=== PATIENT | male | born 1945 | race Caucasian/White ===

== ENCOUNTER 2019-11-20 20:35 | Inpatient (IN) ==
[2019-11-20 21:47] LABS: ABS Basophils 0.1 10^3/ul (0-0.2); ABS Monocytes 1.5 10^3/ul (0-0.8); ABS Neutrophils 17.9 10^3/ul (1.5-7.7); Hematocrit 41 % (42-52); Hemoglobin 14.1 g/dL (14.0-18.0); Mean Corpuscular HGB Conc 34 g/dL (31-36); Mean Corpuscular Hemoglobin 32 pg (27-31); Mean Corpuscular Volume 93 fL (80-94); Mean Platelet Volume 7.6 fL (7.4-10.4); Platelet Count 206 10^3/uL (150-450); Red Blood Count 4.44 10^6 /uL (4.18-5.48); Red Cell Distribution Width 15 % (10-15); White Blood Count 20.5 10^3/uL (3.5-10.8)
[2019-11-20 22:00] LABS: Urine Appearance Turbid; Urine Bilirubin Negative (Negative); Urine Blood 3+ (Negative); Urine Color Yellow; Urine Glucose Negative (Negative); Urine Ketones Negative (Negative); Urine Nitrite Negative (Negative); Urine Protein 2+(100 mg/dL) (Negative); Urine Urobilinogen Negative (Negative)
[2019-11-20 22:01] LABS: Albumin 3.8 g/dL (3.2-5.2); Albumin/Globulin Ratio 0.9 (1-3); BUN/Creatinine Ratio 12.7 (8-20); C Reactive Protein 50.16 mg/L (<8.01); Calcium 9.8 mg/dL (8.6-10.3); EGFR African American 35.5 (>60); EGFR Non-African American 29.3 (>60); Globulin 4.2 g/dL (2-4); Total Bilirubin 1.1 mg/dL (0.2-1.0)
[2019-11-20 22:02] LABS: Potassium 5.2 mmol/L (3.5-5.0)
[2019-11-20 22:17] LABS: Urine Bacteria Absent (Absent); Urine Red Blood Cell 1+(3-5/hpf) (Absent); Urine White Blood Cell 3+(>20/hpf) (Absent)
[2019-11-20] MEDS ORDERED: Albuterol/Ipratropium NEB.SOL (2.5/0.5 MG) 3 ML NEB.SOLN INH ONE (22:21)
[2019-11-20] MEDS ORDERED: cefTRIAXone 1 gm/50 mL NS BAG 1 GM/50 ML BAG IV ONE (23:24)
[2019-11-21] MEDS ORDERED: methylPREDNISolone 125 mg 2 ML VIAL IV ONE
[2019-11-21] MEDS ORDERED: Ondansetron 4 mg VIAL 2 MG/ML 2 ml VIAL IV PRN (01:10)
[2019-11-21] MEDS ORDERED: Albuterol/Ipratropium NEB.SOL (2.5/0.5 MG) 3 ML NEB.SOLN INH PRN (01:21)
[2019-11-21 01:38] LABS: Activated Partial Thrombo Time 28.4 seconds (26.0-38.0); INR 1.31 (0.82-1.09)
[2019-11-21] MEDS: NS 0.9% 1000 ml BAG 1,000 ML IV SCH ×3 (01:41→19:52)
[2019-11-21] MEDS: Heparin 5000 UNITS/ML 1 mL VIAL SUBCUT SCH ×3 (05:23→22:11)
[2019-11-21 06:42] LABS: ABS Lymphocytes 0.7 10^3/ul (1.0-4.8); ABS Monocytes 0.3 10^3/ul (0-0.8); ABS Neutrophils 18.4 10^3/ul (1.5-7.7); Hematocrit 39 % (42-52); Hemoglobin 13.1 g/dL (14.0-18.0); Lymphocyte % 3.5 %; Mean Corpuscular HGB Conc 34 g/dL (31-36); Mean Corpuscular Hemoglobin 31 pg (27-31); Mean Corpuscular Volume 93 fL (80-94); Platelet Count 169 10^3/uL (150-450); Red Blood Count 4.18 10^6 /uL (4.18-5.48); Red Cell Distribution Width 15 % (10-15); White Blood Count 19.4 10^3/uL (3.5-10.8)
[2019-11-21 06:44] LABS: INR 1.38 (0.82-1.09)
[2019-11-21 06:51] LABS: BUN/Creatinine Ratio 19.2 (8-20); EGFR African American 47.4 (>60); EGFR Non-African American 39.2 (>60); Potassium 4.3 mmol/L (3.5-5.0)
[2019-11-21] MEDS: Aspirin EC 81 mg TAB.EC (enteric coated) PO SCH (10:12)
[2019-11-21 10:21] LABS: Indirect Bilirubin 0.7 mg/dL (0.3-1.0); Total Bilirubin 0.9 mg/dL (0.2-1.0)
[2019-11-22] MEDS ORDERED: cefTRIAXone 1 gm/50 mL NS BAG 1 GM/50 ML BAG IVPB SCH
[2019-11-22] MEDS: Heparin 5000 UNITS/ML 1 mL VIAL SUBCUT SCH ×3 (06:17→20:09)
[2019-11-22 07:11] LABS: Hematocrit 35 % (42-52); Hemoglobin 11.8 g/dL (14.0-18.0); Mean Corpuscular HGB Conc 34 g/dL (31-36); Mean Corpuscular Hemoglobin 32 pg (27-31); Mean Corpuscular Volume 94 fL (80-94); Mean Platelet Volume 8.3 fL (7.4-10.4); Platelet Count 169 10^3/uL (150-450); Red Blood Count 3.73 10^6 /uL (4.18-5.48); Red Cell Distribution Width 15 % (10-15); White Blood Count 13.6 10^3/uL (3.5-10.8)
[2019-11-22 07:25] LABS: BUN/Creatinine Ratio 28.8 (8-20); Calcium 8.3 mg/dL (8.6-10.3); EGFR African American 64.3 (>60); EGFR Non-African American 53.2 (>60); Potassium 3.7 mmol/L (3.5-5.0)
[2019-11-22] MEDS: Aspirin EC 81 mg TAB.EC (enteric coated) PO SCH (08:09)
[2019-11-23] MEDS: Heparin 5000 UNITS/ML 1 mL VIAL SUBCUT SCH (05:34)
[2019-11-23 07:22] LABS: Hematocrit 35 % (42-52); Hemoglobin 11.8 g/dL (14.0-18.0); Mean Corpuscular HGB Conc 34 g/dL (31-36); Mean Corpuscular Hemoglobin 32 pg (27-31); Mean Corpuscular Volume 94 fL (80-94); Mean Platelet Volume 8.4 fL (7.4-10.4); Platelet Count 164 10^3/uL (150-450); Red Blood Count 3.71 10^6 /uL (4.18-5.48); Red Cell Distribution Width 15 % (10-15); White Blood Count 7.8 10^3/uL (3.5-10.8)
[2019-11-23 07:34] LABS: BUN/Creatinine Ratio 25.3 (8-20); Calcium 8.1 mg/dL (8.6-10.3); EGFR Non-African American 77.7 (>60); Potassium 3.9 mmol/L (3.5-5.0)
[2019-11-23] MEDS: Aspirin EC 81 mg TAB.EC (enteric coated) PO SCH (08:12)
[2019-11-23 11:31] VITALS: BP 137/79
== END 2019-11-23 12:10 | disposition home or self-care (01) | DRG 56 ==
LOC: ED 20:35 → MED 11-21 01:07
PROVIDERS: ADMIT Pediatrics; ATTEND Internal Medicine

== ENCOUNTER 2021-04-22 05:02 | Inpatient (IN) ==
[2021-04-22] MEDS ORDERED: Albuterol 2.5mg/3 ml (0.083%) NEB.SOLN INH ONE (05:05)
[2021-04-22 14:35] LABS: Rapid COVID-19 Molecular Undetected (Undetected)
[2021-04-22 15:31] LABS: ABS Basophils 0.1 10^3/ul (0-0.2); ABS Eosinophils 0.1 10^3/ul (0-0.6); ABS Monocytes 0.5 10^3/ul (0-0.8); ABS Neutrophils 5.8 10^3/ul (1.5-7.7); Hematocrit 36 % (42-52); Hemoglobin 11.4 g/dL (14.0-18.0); Mean Corpuscular HGB Conc 31 g/dL (31-36); Mean Corpuscular Hemoglobin 26 pg (27-31); Mean Corpuscular Volume 82 fL (80-94); Mean Platelet Volume 8.3 fL (7.4-10.4); Nucleated Red Blood Cells % 0.1; Platelet Count 256 10^3/uL (150-450); Red Blood Count 4.43 10^6 /uL (4.18-5.48); Red Cell Distribution Width 20 % (10-15); White Blood Count 7.4 10^3/uL (3.5-10.8)
[2021-04-22 15:35] LABS: INR 1.51 (0.86-1.15)
[2021-04-22 15:46] LABS: ALT 17 U/L (7-52); Albumin 3.7 g/dL (3.2-5.2); Albumin/Globulin Ratio 1.1 (1-3); Alkaline Phosphatase 91 U/L (35-149); Blood Urea Nitrogen 16 mg/dL (6-24); C Reactive Protein 52.97 mg/L (<8.01); CO2 Carbon Dioxide 27 mmol/L (22-32); Calcium 8.8 mg/dL (8.6-10.3); Chloride 109 mmol/L (101-111); Globulin 3.5 g/dL (2-4); Glucose 129 mg/dL (70-100); Sodium 141 mmol/L (135-145); Total Protein 7.2 g/dL (6.4-8.9); eGFR CKD-EPI 68.2 (>60)
[2021-04-22] MEDS ORDERED: Iohexol 350 (CONTRAST) 500 ML MDV IV ONE (16:14)
[2021-04-22 16:31] LABS: Anion Gap 5 mmol/L (2-11); Troponin I 0.76 ng/mL (<0.03)
[2021-04-22 19:10] LABS: AST Redraw 21 U/L (13-39); Magnesium 1.9 mg/dL (1.9-2.7); Potassium Redraw 3.9 mmol/L (3.5-5.0)
[2021-04-22 19:22] LABS: Troponin I 0.62 ng/mL (<0.03)
[2021-04-22] MEDS ORDERED: NS 0.9% 500 ml BAG 500 ML IV ONE (19:33)
[2021-04-22] MEDS ORDERED: cefTRIAXone 1 gm/50 mL NS BAG 1 GM/50 ML BAG IV ONE (19:38)
[2021-04-22] MEDS ORDERED: Albuterol HFA INHALER 8 gm MDI INH PRN (19:39)
[2021-04-22] MEDS: Acetaminophen IV 1 GM/100ML 100 ML IV PRN (19:47)
[2021-04-22] MEDS ORDERED: Heparin 5000 UNITS/ML 1 mL VIAL IV SCH (20:00)
[2021-04-22] MEDS: Heparin DRIP 25,000 UNITS BAG 25,000 UNITS/500 ML BAG IV SCH (20:43)
[2021-04-22 20:46] LABS: Urine Appearance Cloudy; Urine Bacteria Absent (Absent); Urine Bilirubin Negative (Negative); Urine Blood 1+ (Negative); Urine Color Yellow; Urine Glucose Negative (Negative); Urine Ketones Negative (Negative); Urine Nitrite Positive (Negative); Urine Protein 2+(100 mg/dL) (Negative); Urine Red Blood Cell 3+(>10/hpf) (Absent); Urine Squamous Epithelial Cell Present (Absent); Urine Urobilinogen Positive (Negative); Urine White Blood Cell 3+(>20/hpf) (Absent)
[2021-04-22 20:52] LABS: Urine Specific Gravity > 1.060 (1.002-1.030)
[2021-04-22] MEDS ORDERED: DOXYcycline IV 100 MG in NS 0.9% 250 ML IVPB ONE (21:00)
[2021-04-22 21:51] LABS: Troponin I 0.61 ng/mL (<0.03)
[2021-04-23] MEDS: NS 0.9% 1000 ml BAG 1,000 ML IV SCH ×2 (00:58→21:58)
[2021-04-23 04:19] LABS: ABS Eosinophils 0.2 10^3/ul (0-0.6); ABS Lymphocytes 0.7 10^3/ul (1.0-4.8); ABS Monocytes 0.4 10^3/ul (0-0.8); ABS Neutrophils 5.4 10^3/ul (1.5-7.7); Eosinophil % 2.4 %; Hematocrit 35 % (42-52); Hemoglobin 10.7 g/dL (14.0-18.0); Lymphocyte % 10.5 %; Mean Corpuscular HGB Conc 30 g/dL (31-36); Mean Corpuscular Hemoglobin 25 pg (27-31); Mean Corpuscular Volume 83 fL (80-94); Mean Platelet Volume 7.7 fL (7.4-10.4); Platelet Count 196 10^3/uL (150-450); Red Blood Count 4.21 10^6 /uL (4.18-5.48); Red Cell Distribution Width 20 % (10-15); White Blood Count 6.7 10^3/uL (3.5-10.8)
[2021-04-23 04:41] LABS: Calcium 8.4 mg/dL (8.6-10.3); HDL Cholesterol 22.2 mg/dL; Potassium 3.9 mmol/L (3.5-5.0); eGFR CKD-EPI 76.2 (>60)
[2021-04-23] MEDS: Acetaminophen IV 1 GM/100ML 100 ML IV PRN ×2 (05:17→12:00)
[2021-04-23] MEDS ORDERED: DOXYcycline 100 MG in NS 0.9% 250 ml 250 ML IVPB SCH (09:00)
[2021-04-23] MEDS: Aspirin EC 81 mg TAB.EC (enteric coated) PO SCH (11:10)
[2021-04-23] MEDS: DOXYcycline 100 MG in NS 0.9% 250 ml 250 ML IVPB SCH ×2 (12:19→21:59)
[2021-04-23] MEDS: Heparin DRIP 25,000 UNITS BAG 25,000 UNITS/500 ML BAG IV SCH (19:34)
[2021-04-23] MEDS: cefTRIAXone 1 gm/50 mL NS BAG 1 GM/50 ML BAG IVPB SCH (20:34)
[2021-04-23] MEDS ORDERED: Albuterol HFA INHALER 8 gm MDI INH PRN (22:44)
[2021-04-24] MEDS: Acetaminophen IV 1 GM/100ML 100 ML IV PRN (01:30)
[2021-04-24 02:05] LABS: ABS Lymphocytes 0.6 10^3/ul (1.0-4.8); ABS Monocytes 0.5 10^3/ul (0-0.8); Eosinophil % 0.4 %; Hematocrit 35 % (42-52); Hemoglobin 10.5 g/dL (14.0-18.0); Lymphocyte % 6.4 %; Mean Corpuscular HGB Conc 31 g/dL (31-36); Mean Corpuscular Hemoglobin 25 pg (27-31); Mean Corpuscular Volume 83 fL (80-94); Mean Platelet Volume 7.6 fL (7.4-10.4); Nucleated Red Blood Cells % 0.1; Platelet Count 212 10^3/uL (150-450); Red Blood Count 4.15 10^6 /uL (4.18-5.48); Red Cell Distribution Width 20 % (10-15); White Blood Count 9.2 10^3/uL (3.5-10.8)
[2021-04-24 02:23] LABS: Calcium 8.3 mg/dL (8.6-10.3); Potassium 4.3 mmol/L (3.5-5.0); eGFR CKD-EPI 86.2 (>60)
[2021-04-24] MEDS: Aspirin EC 81 mg TAB.EC (enteric coated) PO SCH (07:58)
[2021-04-24] MEDS: Albuterol HFA INHALER 8 gm MDI INH SCH ×4 (10:42→19:39)
[2021-04-24] MEDS: Mometasone/Formoter 100/5 MDI INH SCH ×2 (10:42→19:32)
[2021-04-24] MEDS: SPIRIVA Respimat (tiotropium) 2.5 mcg/inh Inhaler INH SCH (10:43)
[2021-04-24] MEDS: DOXYcycline 100 MG in NS 0.9% 250 ml 250 ML IVPB SCH ×2 (12:08→23:07)
[2021-04-24] MEDS: cefTRIAXone 1 gm/50 mL NS BAG 1 GM/50 ML BAG IVPB SCH (20:04)
[2021-04-24] MEDS: Heparin 5000 UNITS/ML 1 mL VIAL SUBCUT SCH (20:06)
[2021-04-25] MEDS: Heparin 5000 UNITS/ML 1 mL VIAL SUBCUT SCH ×3 (05:56→20:23)
[2021-04-25] MEDS: Aspirin EC 81 mg TAB.EC (enteric coated) PO SCH (08:11)
[2021-04-25 08:21] LABS: Potassium 4.4 mmol/L (3.5-5.0); eGFR CKD-EPI 87.3 (>60)
[2021-04-25] MEDS: SPIRIVA Respimat (tiotropium) 2.5 mcg/inh Inhaler INH SCH (08:29)
[2021-04-25] MEDS: Mometasone/Formoter 100/5 MDI INH SCH ×2 (08:30→19:26)
[2021-04-25] MEDS: Albuterol HFA INHALER 8 gm MDI INH SCH ×4 (08:34→19:25)
[2021-04-25 08:43] LABS: ABS Lymphocytes 1.2 10^3/ul (1.0-4.8); ABS Monocytes 0.7 10^3/ul (0-0.8); ABS Neutrophils 6.3 10^3/ul (1.5-7.7); Eosinophil % 0.2 %; Hematocrit 35 % (42-52); Hemoglobin 10.6 g/dL (14.0-18.0); Lymphocyte % 14.3 %; Mean Corpuscular HGB Conc 31 g/dL (31-36); Mean Corpuscular Hemoglobin 26 pg (27-31); Mean Corpuscular Volume 83 fL (80-94); Mean Platelet Volume 8.2 fL (7.4-10.4); Nucleated Red Blood Cells % 0.1; Platelet Count 229 10^3/uL (150-450); Red Blood Count 4.16 10^6 /uL (4.18-5.48); Red Cell Distribution Width 20 % (10-15); White Blood Count 8.2 10^3/uL (3.5-10.8)
[2021-04-25] MEDS ORDERED: Furosemide 40 mg/4 ml IV VIAL IV SLOW PU ONE (09:43)
[2021-04-25] MEDS ORDERED: Polyethylene Glycol 3350 17 GM PACKET PO PRN (09:48)
[2021-04-25] MEDS ORDERED: Polyethylene Glycol 3350 17 GM PACKET PO ONE (09:49)
[2021-04-25] MEDS ORDERED: Senna TAB 8.6 mg TAB PO SCH (09:50)
[2021-04-25] MEDS: DOXYcycline 100 MG in NS 0.9% 250 ml 250 ML IVPB SCH (10:32)
[2021-04-25] MEDS: Acetaminophen IV 1 GM/100ML 100 ML IV SCH (18:26)
[2021-04-25] MEDS: cefTRIAXone 1 gm/50 mL NS BAG 1 GM/50 ML BAG IVPB SCH (20:22)
[2021-04-25] MEDS: metroNIDAZOLE IV 500 MG/100ML 500 MG/100 ML BAG IVPB SCH (23:02)
[2021-04-26] MEDS: Acetaminophen IV 1 GM/100ML 100 ML IV SCH ×2 (02:01→10:51)
[2021-04-26 05:12] LABS: ABS Lymphocytes 1.1 10^3/ul (1.0-4.8); ABS Monocytes 0.5 10^3/ul (0-0.8); ABS Neutrophils 5.3 10^3/ul (1.5-7.7); Eosinophil % 0.1 %; Hematocrit 35 % (42-52); Hemoglobin 10.6 g/dL (14.0-18.0); Lymphocyte % 16.6 %; Mean Corpuscular HGB Conc 31 g/dL (31-36); Mean Corpuscular Hemoglobin 25 pg (27-31); Mean Corpuscular Volume 83 fL (80-94); Mean Platelet Volume 7.5 fL (7.4-10.4); Nucleated Red Blood Cells % 0.2; Platelet Count 244 10^3/uL (150-450); Red Cell Distribution Width 20 % (10-15); White Blood Count 6.9 10^3/uL (3.5-10.8)
[2021-04-26] MEDS: Heparin 5000 UNITS/ML 1 mL VIAL SUBCUT SCH ×3 (05:14→20:24)
[2021-04-26] MEDS: metroNIDAZOLE IV 500 MG/100ML 500 MG/100 ML BAG IVPB SCH ×3 (05:19→22:56)
[2021-04-26 05:31] LABS: Calcium 8.7 mg/dL (8.6-10.3); Magnesium 1.8 mg/dL (1.9-2.7); Potassium 3.9 mmol/L (3.5-5.0); eGFR CKD-EPI 81.9 (>60)
[2021-04-26] MEDS: Albuterol HFA INHALER 8 gm MDI INH SCH ×4 (07:55→20:06)
[2021-04-26] MEDS: Mometasone/Formoter 100/5 MDI INH SCH ×2 (07:55→20:03)
[2021-04-26] MEDS: SPIRIVA Respimat (tiotropium) 2.5 mcg/inh Inhaler INH SCH (07:55)
[2021-04-26] MEDS ORDERED: Magnesium Sulfate IV 1GM/100ML 1 GM/100 ML BAG IV ONE (08:18)
[2021-04-26] MEDS ORDERED: methylPREDNISolone SOD 40 mg/ml 1 ml VIAL IV SCH (09:00)
[2021-04-26] MEDS ORDERED: Regadenoson 0.4 MG/5 ML SYRINGE ONE (14:07)
[2021-04-26] MEDS: Nystatin SUSPENSION 100,000 UNITS/ML UDC PO SCH ×2 (17:55→20:45)
[2021-04-26] MEDS: methylPREDNISolone SOD 40 mg/ml 1 ml VIAL IV SCH (17:55)
[2021-04-26] MEDS: cefTRIAXone 1 gm/50 mL NS BAG 1 GM/50 ML BAG IVPB SCH (20:23)
[2021-04-27] MEDS: methylPREDNISolone SOD 40 mg/ml 1 ml VIAL IV SCH ×3 (03:19→17:35)
[2021-04-27 05:26] LABS: ABS Lymphocytes 0.4 10^3/ul (1.0-4.8); ABS Monocytes 0.2 10^3/ul (0-0.8); ABS Neutrophils 5.8 10^3/ul (1.5-7.7); Hematocrit 34 % (42-52); Hemoglobin 10.5 g/dL (14.0-18.0); Lymphocyte % 6.4 %; Mean Corpuscular HGB Conc 31 g/dL (31-36); Mean Corpuscular Hemoglobin 26 pg (27-31); Mean Corpuscular Volume 83 fL (80-94); Mean Platelet Volume 7.6 fL (7.4-10.4); Nucleated Red Blood Cells % 0.1; Platelet Count 241 10^3/uL (150-450); Red Cell Distribution Width 19 % (10-15); White Blood Count 6.5 10^3/uL (3.5-10.8)
[2021-04-27 05:37] LABS: Calcium 8.7 mg/dL (8.6-10.3); Magnesium 2.1 mg/dL (1.9-2.7)
[2021-04-27 05:38] LABS: Potassium 4.6 mmol/L (3.5-5.0)
[2021-04-27 05:42] LABS: eGFR CKD-EPI 92.5 (>60)
[2021-04-27] MEDS: metroNIDAZOLE IV 500 MG/100ML 500 MG/100 ML BAG IVPB SCH ×3 (06:30→23:50)
[2021-04-27] MEDS: Heparin 5000 UNITS/ML 1 mL VIAL SUBCUT SCH ×3 (06:30→23:41)
[2021-04-27] MEDS: Albuterol HFA INHALER 8 gm MDI INH SCH ×4 (08:40→19:05)
[2021-04-27] MEDS: SPIRIVA Respimat (tiotropium) 2.5 mcg/inh Inhaler INH SCH (08:41)
[2021-04-27] MEDS: Mometasone/Formoter 100/5 MDI INH SCH ×2 (08:41→19:05)
[2021-04-27] MEDS: Nystatin SUSPENSION 100,000 UNITS/ML UDC PO SCH ×4 (10:28→22:15)
[2021-04-27] MEDS: Aspirin EC 81 mg TAB.EC (enteric coated) PO SCH (10:28)
[2021-04-27] MEDS: Furosemide 40 mg/4 ml IV VIAL IV SLOW PU SCH (17:21)
[2021-04-27] MEDS: cefTRIAXone 1 gm/50 mL NS BAG 1 GM/50 ML BAG IVPB SCH (22:31)
[2021-04-28] MEDS: methylPREDNISolone SOD 40 mg/ml 1 ml VIAL IV SCH ×3 (03:46→19:16)
[2021-04-28 06:23] LABS: Calcium 8.8 mg/dL (8.6-10.3); Potassium 4.2 mmol/L (3.5-5.0)
[2021-04-28 06:28] LABS: eGFR CKD-EPI 86.2 (>60)
[2021-04-28] MEDS: Heparin 5000 UNITS/ML 1 mL VIAL SUBCUT SCH ×2 (06:31→14:20)
[2021-04-28] MEDS: metroNIDAZOLE IV 500 MG/100ML 500 MG/100 ML BAG IVPB SCH ×3 (06:31→21:13)
[2021-04-28] MEDS: Albuterol HFA INHALER 8 gm MDI INH SCH ×3 (08:16→20:04)
[2021-04-28] MEDS: SPIRIVA Respimat (tiotropium) 2.5 mcg/inh Inhaler INH SCH (08:16)
[2021-04-28] MEDS: Mometasone/Formoter 100/5 MDI INH SCH ×2 (08:17→20:04)
[2021-04-28] MEDS: Aspirin EC 81 mg TAB.EC (enteric coated) PO SCH (09:53)
[2021-04-28] MEDS: Furosemide 40 mg/4 ml IV VIAL IV SLOW PU SCH (09:53)
[2021-04-28] MEDS: Nystatin SUSPENSION 100,000 UNITS/ML UDC PO SCH ×4 (09:57→22:15)
[2021-04-28] MEDS ORDERED: Polyethylene Glycol 3350 17 GM PACKET PO PRN (17:58)
[2021-04-28] MEDS ORDERED: Senna TAB 8.6 mg TAB PO PRN (17:58)
[2021-04-28] MEDS ORDERED: Magnesium Hydroxide LIQ 30 ML UDC PO PRN (17:58)
[2021-04-28] MEDS: Albuterol/Ipratropium NEB.SOL (2.5/0.5 MG) 3 ML NEB.SOLN INH SCH (19:39)
[2021-04-28] MEDS: Budesonide NEB 0.5 MG/2 ML NEB.SOLN INH SCH (19:39)
[2021-04-28] MEDS: cefTRIAXone 1 gm/50 mL NS BAG 1 GM/50 ML BAG IVPB SCH (21:02)
[2021-04-28] MEDS: Magnesium Hydroxide LIQ 30 ML UDC PO SCH (21:12)
[2021-04-29] MEDS: methylPREDNISolone SOD 40 mg/ml 1 ml VIAL IV SCH (01:20)
[2021-04-29] MEDS: metroNIDAZOLE IV 500 MG/100ML 500 MG/100 ML BAG IVPB SCH ×3 (05:23→21:27)
[2021-04-29 05:41] LABS: ABS Lymphocytes 0.4 10^3/ul (1.0-4.8); ABS Monocytes 0.2 10^3/ul (0-0.8); ABS Neutrophils 6.3 10^3/ul (1.5-7.7); Hematocrit 36 % (42-52); Hemoglobin 11.1 g/dL (14.0-18.0); Lymphocyte % 5.5 %; Mean Corpuscular HGB Conc 31 g/dL (31-36); Mean Corpuscular Hemoglobin 26 pg (27-31); Mean Corpuscular Volume 83 fL (80-94); Mean Platelet Volume 7.9 fL (7.4-10.4); Nucleated Red Blood Cells % 0.1; Platelet Count 262 10^3/uL (150-450); Red Blood Count 4.33 10^6 /uL (4.18-5.48); Red Cell Distribution Width 20 % (10-15)
[2021-04-29 06:01] LABS: Calcium 8.7 mg/dL (8.6-10.3); Potassium 4.4 mmol/L (3.5-5.0); eGFR CKD-EPI 91.8 (>60)
[2021-04-29] MEDS: Furosemide 40 mg/4 ml IV VIAL IV SLOW PU SCH (08:40)
[2021-04-29] MEDS: Magnesium Hydroxide LIQ 30 ML UDC PO SCH ×2 (08:41→20:03)
[2021-04-29] MEDS: Nystatin SUSPENSION 100,000 UNITS/ML UDC PO SCH ×4 (08:41→20:02)
[2021-04-29] MEDS ORDERED: methylPREDNISolone SOD 40 mg/ml 1 ml VIAL IV SCH (09:00)
[2021-04-29] MEDS: Albuterol/Ipratropium NEB.SOL (2.5/0.5 MG) 3 ML NEB.SOLN INH SCH ×2 (10:44→17:10)
[2021-04-29] MEDS: CMC:Formoterol 20 MCG/2ML NEB (NF) 10 MCG/ML NEB.SOLN INH SCH ×2 (10:45→19:27)
[2021-04-29] MEDS: Budesonide NEB 0.5 MG/2 ML NEB.SOLN INH SCH ×2 (10:45→19:27)
[2021-04-29] MEDS: cefTRIAXone 1 gm/50 mL NS BAG 1 GM/50 ML BAG IVPB SCH (20:03)
[2021-04-30] MEDS: metroNIDAZOLE IV 500 MG/100ML 500 MG/100 ML BAG IVPB SCH ×3 (05:45→23:01)
[2021-04-30] MEDS: Budesonide NEB 0.5 MG/2 ML NEB.SOLN INH SCH ×2 (07:44→19:15)
[2021-04-30] MEDS: Albuterol/Ipratropium NEB.SOL (2.5/0.5 MG) 3 ML NEB.SOLN INH SCH ×2 (07:44→19:15)
[2021-04-30] MEDS: CMC:Formoterol 20 MCG/2ML NEB (NF) 10 MCG/ML NEB.SOLN INH SCH ×2 (07:44→19:15)
[2021-04-30] MEDS: Nystatin SUSPENSION 100,000 UNITS/ML UDC PO SCH ×4 (09:31→22:20)
[2021-04-30] MEDS: Magnesium Hydroxide LIQ 30 ML UDC PO SCH (09:31)
[2021-04-30] MEDS: Furosemide 40 mg/4 ml IV VIAL IV SLOW PU SCH (09:32)
[2021-04-30] MEDS: Polyethylene Glycol 3350 17 GM PACKET PO SCH (13:25)
[2021-04-30] MEDS: Pantoprazole VIAL 40 MG VIAL IV SCH (13:25)
[2021-04-30] MEDS ORDERED: Furosemide 40 mg/4 ml IV VIAL IV SLOW PU ONE (18:48)
[2021-04-30 19:12] LABS: PCO2 Arterial 54 mmHg (35-45); PO2 Arterial 62 mmHg (80-100)
[2021-04-30] MEDS: Senna TAB 8.6 mg TAB PO SCH ×2 (22:19→22:34)
[2021-05-01 05:12] LABS: ABS Lymphocytes 0.5 10^3/ul (1.0-4.8); ABS Monocytes 0.4 10^3/ul (0-0.8); ABS Neutrophils 9.7 10^3/ul (1.5-7.7); Hematocrit 42 % (42-52); Hemoglobin 12.6 g/dL (14.0-18.0); Lymphocyte % 4.8 %; Mean Corpuscular HGB Conc 30 g/dL (31-36); Mean Corpuscular Hemoglobin 26 pg (27-31); Mean Corpuscular Volume 87 fL (80-94); Mean Platelet Volume 7.7 fL (7.4-10.4); Nucleated Red Blood Cells % 0.1; Platelet Count 281 10^3/uL (150-450); Red Blood Count 4.89 10^6 /uL (4.18-5.48); Red Cell Distribution Width 20 % (10-15); White Blood Count 10.6 10^3/uL (3.5-10.8)
[2021-05-01 05:46] LABS: Calcium 8.7 mg/dL (8.6-10.3); Magnesium 2.6 mg/dL (1.9-2.7); Potassium 4.3 mmol/L (3.5-5.0); eGFR CKD-EPI 79.9 (>60)
[2021-05-01] MEDS: metroNIDAZOLE IV 500 MG/100ML 500 MG/100 ML BAG IVPB SCH (06:18)
[2021-05-01] MEDS: CMC:Formoterol 20 MCG/2ML NEB (NF) 10 MCG/ML NEB.SOLN INH SCH (07:24)
[2021-05-01] MEDS: Budesonide NEB 0.5 MG/2 ML NEB.SOLN INH SCH ×2 (07:24→18:58)
[2021-05-01] MEDS: Albuterol/Ipratropium NEB.SOL (2.5/0.5 MG) 3 ML NEB.SOLN INH SCH ×2 (07:24→18:59)
[2021-05-01] MEDS: Senna TAB 8.6 mg TAB PO SCH ×3 (07:41→21:24)
[2021-05-01] MEDS: Nystatin SUSPENSION 100,000 UNITS/ML UDC PO SCH ×4 (07:41→21:24)
[2021-05-01] MEDS: Pantoprazole VIAL 40 MG VIAL IV SCH (07:41)
[2021-05-01] MEDS: Polyethylene Glycol 3350 17 GM PACKET PO SCH (07:41)
[2021-05-01] MEDS ORDERED: Furosemide 40 mg/4 ml IV VIAL IV SLOW PU ONE (08:14)
[2021-05-01] MEDS ORDERED: Furosemide 40 mg/4 ml IV VIAL IV SLOW PU SCH (09:00)
[2021-05-01] MEDS ORDERED: ZOSYN 3.375 GM x ONE DOSE over 30 miuntes IV (10:00)
[2021-05-01] MEDS: methylPREDNISolone SOD 40 mg/ml 1 ml VIAL IV SCH (10:21)
[2021-05-01] MEDS: Acetaminophen IV 1 GM/100ML 100 ML IV PRN (11:15)
[2021-05-01] MEDS ORDERED: Norepinephrine 16MCG/ML BAGD5W 4,000 MCG/250 ML BAG IV ONE (12:12)
[2021-05-01] MEDS: Norepinephrine 16MCG/ML BAGD5W 4,000 MCG/250 ML BAG IV SCH (12:12)
[2021-05-01 12:37] LABS: PCO2 Arterial 47 mmHg (35-45); PO2 Arterial 87 mmHg (80-100)
[2021-05-01] MEDS: NORMOSOL-R pH 7.4 1000 mL BAG 1,000 ML IV SCH ×2 (12:43→21:54)
[2021-05-01] MEDS ORDERED: Norepinephrine 16MCG/ML BAG NS 4,000 MCG/250 ML BAG IV SCH (13:00)
[2021-05-01] MEDS: Linezolid 600 MG IVPREMIX(*) 600 MG/300 ML BAG IVPB SCH (13:15)
[2021-05-01] MEDS: Piperacillin/Tazobac ADVAN 3.375 GM in NS 0.9% 100 ml BAG 100 ML IV SCH ×2 (15:32→21:48)
[2021-05-02] MEDS: Linezolid 600 MG IVPREMIX(*) 600 MG/300 ML BAG IVPB SCH ×2 (02:13→13:16)
[2021-05-02 04:38] LABS: ABS Lymphocytes 0.9 10^3/ul (1.0-4.8); ABS Monocytes 0.6 10^3/ul (0-0.8); ABS Neutrophils 9.2 10^3/ul (1.5-7.7); Eosinophil % 0.2 %; Hematocrit 36 % (42-52); Hemoglobin 11.1 g/dL (14.0-18.0); Lymphocyte % 8.4 %; Mean Corpuscular HGB Conc 31 g/dL (31-36); Mean Corpuscular Hemoglobin 25 pg (27-31); Mean Corpuscular Volume 81 fL (80-94); Mean Platelet Volume 7.7 fL (7.4-10.4); Platelet Count 284 10^3/uL (150-450); Red Cell Distribution Width 19 % (10-15); White Blood Count 10.8 10^3/uL (3.5-10.8)
[2021-05-02 05:05] LABS: Calcium 8.4 mg/dL (8.6-10.3); Magnesium 2.4 mg/dL (1.9-2.7); Potassium 3.9 mmol/L (3.5-5.0)
[2021-05-02 05:10] LABS: eGFR CKD-EPI 91.5 (>60)
[2021-05-02] MEDS: Piperacillin/Tazobac ADVAN 3.375 GM in NS 0.9% 100 ml BAG 100 ML IV SCH ×3 (06:12→22:00)
[2021-05-02] MEDS: Budesonide NEB 0.5 MG/2 ML NEB.SOLN INH SCH ×2 (07:29→19:21)
[2021-05-02] MEDS: Albuterol/Ipratropium NEB.SOL (2.5/0.5 MG) 3 ML NEB.SOLN INH SCH ×2 (07:29→19:20)
[2021-05-02] MEDS ORDERED: Furosemide 40 mg/4 ml IV VIAL IV SCH (09:00)
[2021-05-02] MEDS: methylPREDNISolone SOD 40 mg/ml 1 ml VIAL IV SCH (11:09)
[2021-05-02] MEDS: Nystatin SUSPENSION 100,000 UNITS/ML UDC PO SCH ×3 (11:09→21:16)
[2021-05-02] MEDS: Pantoprazole VIAL 40 MG VIAL IV SCH (11:09)
[2021-05-02] MEDS: Enoxaparin 100 MG/ML SYR SUBCUT SCH ×2 (11:09→21:17)
[2021-05-02] MEDS: Senna TAB 8.6 mg TAB PO SCH ×2 (11:13→21:16)
[2021-05-02] MEDS: Polyethylene Glycol 3350 17 GM PACKET PO SCH (11:13)
[2021-05-02] MEDS: Acetaminophen IV 1 GM/100ML 100 ML IV PRN (11:28)
[2021-05-03] MEDS: Linezolid 600 MG IVPREMIX(*) 600 MG/300 ML BAG IVPB SCH ×2 (02:04→15:07)
[2021-05-03] MEDS: Piperacillin/Tazobac ADVAN 3.375 GM in NS 0.9% 100 ml BAG 100 ML IV SCH ×3 (05:50→22:49)
[2021-05-03] MEDS: Albuterol/Ipratropium NEB.SOL (2.5/0.5 MG) 3 ML NEB.SOLN INH SCH ×2 (07:18→20:57)
[2021-05-03] MEDS: Budesonide NEB 0.5 MG/2 ML NEB.SOLN INH SCH ×2 (07:18→20:57)
[2021-05-03] MEDS: methylPREDNISolone SOD 40 mg/ml 1 ml VIAL IV SCH (07:59)
[2021-05-03] MEDS: Enoxaparin 100 MG/ML SYR SUBCUT SCH ×2 (07:59→21:45)
[2021-05-03] MEDS: Senna TAB 8.6 mg TAB PO SCH ×2 (08:05→21:46)
[2021-05-03] MEDS: Polyethylene Glycol 3350 17 GM PACKET PO SCH (08:05)
[2021-05-03] MEDS: Nystatin SUSPENSION 100,000 UNITS/ML UDC PO SCH ×2 (08:05→14:22)
[2021-05-03] MEDS: Pantoprazole VIAL 40 MG VIAL IV SCH (08:33)
[2021-05-03] MEDS: Acetaminophen IV 1 GM/100ML 100 ML IV PRN (08:40)
[2021-05-04 00:35] LABS: Hematocrit 35 % (42-52); Hemoglobin 11.1 g/dL (14.0-18.0)
[2021-05-04 05:58] LABS: ABS Lymphocytes 1.2 10^3/ul (1.0-4.8); ABS Neutrophils 10.8 10^3/ul (1.5-7.7); Eosinophil % 0.1 %; Hematocrit 36 % (42-52); Lymphocyte % 8.9 %; Mean Corpuscular HGB Conc 31 g/dL (31-36); Mean Corpuscular Hemoglobin 25 pg (27-31); Mean Corpuscular Volume 82 fL (80-94); Mean Platelet Volume 8.5 fL (7.4-10.4); Nucleated Red Blood Cells % 0.1; Platelet Count 287 10^3/uL (150-450); Red Blood Count 4.33 10^6 /uL (4.18-5.48); Red Cell Distribution Width 20 % (10-15); White Blood Count 13.1 10^3/uL (3.5-10.8)
[2021-05-04 06:22] LABS: Calcium 8.5 mg/dL (8.6-10.3); Potassium 4.1 mmol/L (3.5-5.0); eGFR CKD-EPI 90.5 (>60)
[2021-05-04] MEDS: Piperacillin/Tazobac ADVAN 3.375 GM in NS 0.9% 100 ml BAG 100 ML IV SCH ×3 (06:34→23:24)
[2021-05-04] MEDS ORDERED: Albuterol/Ipratropium NEB.SOL (2.5/0.5 MG) 3 ML NEB.SOLN INH PRN (06:48)
[2021-05-04] MEDS ORDERED: Budesonide NEB 0.5 MG/2 ML NEB.SOLN INH PRN (06:49)
[2021-05-04] MEDS: Enoxaparin 100 MG/ML SYR SUBCUT SCH (07:00)
[2021-05-04] MEDS: Senna TAB 8.6 mg TAB PO SCH ×2 (09:07→20:37)
[2021-05-04] MEDS: Polyethylene Glycol 3350 17 GM PACKET PO SCH (09:07)
[2021-05-04] MEDS: Pantoprazole VIAL 40 MG VIAL IV SCH (09:52)
[2021-05-05] MEDS: Piperacillin/Tazobac ADVAN 3.375 GM in NS 0.9% 100 ml BAG 100 ML IV SCH ×3 (06:33→21:40)
[2021-05-05] MEDS: Polyethylene Glycol 3350 17 GM PACKET PO SCH (08:23)
[2021-05-05] MEDS: Senna TAB 8.6 mg TAB PO SCH ×2 (08:23→21:41)
[2021-05-05] MEDS: Pantoprazole VIAL 40 MG VIAL IV SCH (09:45)
[2021-05-05 14:39] LABS: Rapid COVID-19 Molecular Undetected (Undetected)
[2021-05-06] MEDS: Piperacillin/Tazobac ADVAN 3.375 GM in NS 0.9% 100 ml BAG 100 ML IV SCH (05:30)
[2021-05-06] MEDS: Pantoprazole VIAL 40 MG VIAL IV SCH (09:33)
[2021-05-06] MEDS: Polyethylene Glycol 3350 17 GM PACKET PO SCH (09:34)
[2021-05-06 09:39] LABS: Hematocrit 31 % (42-52); Hemoglobin 9.5 g/dL (14.0-18.0); Mean Corpuscular HGB Conc 30 g/dL (31-36); Mean Corpuscular Hemoglobin 25 pg (27-31); Mean Corpuscular Volume 83 fL (80-94); Mean Platelet Volume 8.1 fL (7.4-10.4); Platelet Count 247 10^3/uL (150-450); Red Blood Count 3.79 10^6 /uL (4.18-5.48); Red Cell Distribution Width 19 % (10-15); White Blood Count 14.7 10^3/uL (3.5-10.8)
[2021-05-06] MEDS: Senna TAB 8.6 mg TAB PO SCH (09:44)
[2021-05-06 11:10] VITALS: BP 125/74
== END 2021-05-06 14:00 | DRG 871 ==
LOC: ED 05:02 → SUATTDRO 19:19 → EDHOLD 19:19 → MEDTELE 22:05 → ICU 04-30 20:19 → SSU 05-03 14:42
PROVIDERS: ADMIT Hospitalist; ATTEND Internal Medicine